=== PATIENT | female | born 1975 | race Caucasian/White ===

== ENCOUNTER → 2022-07-15 | Outpatient (REF) | payer OTHER | LOC: M SFHCWAGY 15:22 | PROVIDERS: ATTEND Obstetrics & Gynecology | DX: Z12.4 Encounter for screening for malignant neoplasm of cervix (principal) | CPT/HCPCS: 87624; G0123 ==

== ENCOUNTER → 2022-08-31 | Outpatient (CLI) | payer OTHER | LOC: M RAD 08:51 | PROVIDERS: ATTEND Registered Nurse | DX: R05.3 Chronic cough (principal) ==

== ENCOUNTER → 2022-10-06 | Outpatient (CLI) | payer OTHER ==
[2022-10-06 09:58] LABS: BASO % 0.3 % (0.0-1.0); EOS % 0.2 % (0.0-3.0); HEMATOCRIT 41.2 % (36.0-47.0); HEMOGLOBIN 13.4 g/dl (12.0-15.5); LYMPH # 1.6 10^3/uL (1.5-5.0); LYMPH % 24.3 % (24.0-44.0); MEAN CORPUSCULAR HEMOGLOBIN 30.4 pg (27.0-33.0); MEAN CORPUSCULAR HGB CONC 32.5 g/dl (32.0-36.5); MEAN CORPUSCULAR VOLUME 93.4 fl (80.0-96.0); MONO # 0.6 10^3/uL (0.0-0.8); MONO % 9.4 % (2.0-8.0); NEUTROPHILS # 4.2 10^3/uL (1.5-8.5); NEUTROPHILS % 65.3 % (36.0-66.0); PLATELET COUNT, AUTOMATED 290 10^3/uL (150-450); RED BLOOD COUNT 4.41 10^6/uL (4.00-5.40); WHITE BLOOD COUNT 6.4 10^3/uL (4.0-10.0)
[2022-10-06 10:33] LABS: ALBUMIN 4.3 G/DL (3.2-5.2); ALKALINE PHOSPHATASE 64 U/L (46-116); ALT/SGPT 13 U/L (7.0-40); AST/SGOT 14 U/L (<34); BILIRUBIN,TOTAL 1.1 MG/DL (0.3-1.2); BLOOD UREA NITROGEN 12 MG/DL (9-23); CALCIUM LEVEL 9.3 MG/DL (8.5-10.1); CARBON DIOXIDE LEVEL 28 MMOL/L (20-31); CHLORIDE LEVEL 105 MMOL/L (98-107); CHOLESTEROL LEVEL 165 MG/DL (<200); CHOLESTEROL RISK RATIO 3.83 (<5); GLOMERULAR FILTRATION RATE > 60.0 (>58); GLUCOSE, FASTING 97 MG/DL (60-100); LDL CHOLESTEROL 107.8 MG/DL (<100); NON-HDL-C 122 MG/DL; POTASSIUM SERUM 4.8 MMOL/L (3.5-5.1); SODIUM LEVEL 142 MMOL/L (136-145); TOTAL PROTEIN 7.1 G/DL (5.7-8.2); TRIGLYCERIDES LEVEL 71 MG/DL (<150)
[2022-10-06 10:35] LABS: FREE T4 1.08 NG/DL (0.89-1.76)
== END ==
LOC: M LAB 09:29
PROVIDERS: ATTEND Registered Nurse
DX: E66.9 Obesity, unspecified (principal); R00.2 Palpitations

== ENCOUNTER → 2022-10-13 | Outpatient (REF) | payer OTHER ==
[2022-10-13 14:54] LABS: APPEARANCE, URINE MANUAL CLEAR (CLEAR); BILIRUBIN, URINE MANUAL NEGATIVE (NEGATIVE); BLOOD URINE MANUAL TRACE (NEGATIVE); COLOR, URINE MANUAL LT YELLOW (YELLOW); GLUCOSE, URINE (UA) MANUAL NEGATIVE (NEGATIVE); KETONE, URINE MANUAL 1+ mg/dL (NEGATIVE); LEUKOCYTE ESTERASE, URINE MAN NEGATIVE (NEGATIVE); NITRITE, URINE MANUAL NEGATIVE (NEGATIVE); PROTEIN, URINE MANUAL NEGATIVE (NEGATIVE); UROBILINOGEN, URINE MANUAL NORMAL (NORMAL)
[2022-10-13 15:27] LABS: BACTERIA, URINE MOD AMOUNT; RBC, URINE 0-1 /hpf (0-3); SQUAMOUS EPITHELIAL CELL URINE LARGE AMOUNT /hpf (SMALL AMT)
== END ==
LOC: M PLALAB 11:17
PROVIDERS: ATTEND Obstetrics & Gynecology
DX: R82.90 Unspecified abnormal findings in urine (principal)

== ENCOUNTER → 2022-10-14 | Outpatient (CLI) | payer OTHER ==
[2022-10-14 14:36] LABS: TOTAL 25(OH) VITAMIN D 32.5 NG/ML (20.0-100.0)
[2022-10-14 15:26] LABS: IMMUNOGLOBULIN E < 2.5 IU/ML (0-378)
== END ==
LOC: M LAB 12:12
PROVIDERS: ATTEND Internal Medicine Critical Care Medicine
DX: R55 Syncope and collapse (principal); R05.4 Cough syncope

== ENCOUNTER → 2022-10-28 | Outpatient (CLI) | payer OTHER | LOC: M WHC 08:59 | PROVIDERS: ATTEND Obstetrics & Gynecology | DX: Z30.431 Encounter for routine checking of intrauterine contraceptive device (principal); N83.202 Unspecified ovarian cyst, left side ==

== ENCOUNTER → 2022-11-17 | Outpatient (CLI) | payer OTHER ==
[2022-11-17 12:28] LABS: FOLATE 17.1 NG/ML (>5.4)
== END ==
LOC: M LAB 11:07
PROVIDERS: ATTEND Psychiatry & Neurology Neurology
DX: D51.9 Vitamin B12 deficiency anemia, unspecified (principal); R20.2 Paresthesia of skin

== ENCOUNTER → 2022-12-30 | Outpatient (CLI) | payer OTHER | LOC: M WHC 10:34 | PROVIDERS: ATTEND Obstetrics & Gynecology | DX: N83.202 Unspecified ovarian cyst, left side (principal); D25.9 Leiomyoma of uterus, unspecified; N88.8 Other specified noninflammatory disorders of cervix uteri; Z97.5 Presence of (intrauterine) contraceptive device ==

== ENCOUNTER → 2023-01-06 | Outpatient (CLI) | payer OTHER | LOC: M RAD 10:29 | PROVIDERS: ATTEND Internal Medicine Critical Care Medicine | DX: R05.4 Cough syncope (principal); R91.8 Other nonspecific abnormal finding of lung field ==

== ENCOUNTER → 2023-01-12 | Outpatient (CLI) | payer OTHER ==
[2023-01-12 14:54] LABS: FOLLICLE STIMULATING HORMONE 4.5 mIU/ML
[2023-01-12 14:55] LABS: LUTEINIZING HORMONE 1.3 mIU/ML
== END ==
LOC: M PLALAB 11:36
PROVIDERS: ATTEND Obstetrics & Gynecology
DX: N95.1 Menopausal and female climacteric states (principal)
CPT/HCPCS: 36415; 83001; 83002; G0463